=== PATIENT | male | born 2005 | race Caucasian/White ===

== ENCOUNTER 2024-11-20 14:49 | Emergency (ER) | payer BC, SELFPAY ==
[2024-11-20 14:58] VITALS: BP 158/106; PULSE 61; TEMP 36.6; O2SAT 99; BMI 27.3
--- NOTE | 2024-11-20 15:14 | CT_ITS ---
The [address] [address] Patient Name: HOLLY SUMMERS MRN: [facility]:[id number] date: 2005 Sex: M Assigned Patient Location: ED.MAIN Current Patient Location: ED.MAIN Accession/Order Number: [id number] Exam Date: 11/20/2024 16:01 Report Date: 11/20/2024 16:10 At the request of: DEMI ESTRADA NP Procedure: CT abdomen pelvis wo con CT Abdomen and Pelvis withoutcontrast TECHNIQUE: Axial imaging with 2-D reconstruction. . The CT exam was performed using one or more the following dose reduction techniques: Automated exposure control, adjustment of the MA and/or Kv according to patient size, or use of the iterative reconstruction technique. COMPARISON: None History: Left flank pain LIMITATIONS: None LOWER THORAX Unremarkable LIVER: Unremarkable GALLBLADDER: No gallbladder abnormality identified. BILE DUCTS: No dilatation SPLEEN: Unremarkable PANCREAS: Unremarkable ADRENAL GLANDS: Unremarkable KIDNEYS:Moderate left hydronephrosis and hydroureter. 2 mm obstructing left UVJ stone. Punctate right nephrolithiasis. Ill-defined hypodensities of both kidneys favoring cysts. AORTA: No abdominal aortic aneurysm identified. RETROPERITONEUM: No significant retroperitoneal abnormalities identified. MESENTERY:Unremarkable STOMACH:Unremarkable SMALL BOWEL: The small bowel loops are nondistended. APPENDIX: The appendix is normal. COLON: Unremarkable URINARY BLADDER: Urinary bladder is unremarkable. REPRODUCTIVE SYSTEM: Reproductive structures are unremarkable. PNEUMOPERITONEUM: None PERITONEAL FLUID:None BONY STRUCTURES: Unremarkable ABDOMINAL WALL: Unremarkable CT/CT abdomen pelvis wo con IMPRESSION: Obstructing 2 mm left UVJ stone with moderate hydronephrosis and hydroureter. Nonobstructing punctate right nephrolithiasis. Impression dictated by: Helio Andrade M.D. 11/20/2024 4:10 PM Dictation Location: [place] [address] Electronically authenticated by: [id number] Y Date: 11/20/2024 16:10
--- NOTE | 2024-11-20 15:15 | ED_ITS ---
HPI HPI - General Adult General Chief complaint: Abdominal Pain Stated complaint: LEFT SIDE FLANK PAIN Time Seen by Provider: 11/20/24 15:04 Source: patient Mode of arrival: walk-in History of Present Illness HPI narrative: The patient is a 19-year-old male who presents to the emergency department today for evaluation concerns for back and abdominal pain. He endorses this pain started approximately 90 minutes prior to arrival. He does endorse colicky pain mostly to the left flank that radiates to the left side of the abdomen. He reports associated symptoms of nausea and sensation of frequency with urination. He denies any fever/chills, vomiting. No hematuria. He denies any history of kidney stones. He otherwise denies any significant medical or surgical history. Related Data Previous Rx's ?Medication ?Instructions ?Recorded hydrocodone 5 mg-acetaminophen 325 1 tab PO Q6H PRN pa in 3 days #7 11/20/24 mg tablet tabs ondansetron 4 mg disintegrating 4 mg PO Q8H PRN nausea and 11/20/24 tablet vomiting 4 days #10 tabs tamsulosin 0.4 mg capsule 0.4 mg PO DAILY #10 caps Allergies Allergy/AdvReac Type Severity Reaction Status Date / Time No Known Drug Allergies Allergy Verified 11/20/24 15:01 Review of Systems ROS Status of ROS 10 or more systems reviewed and unremark able except as noted in history and below PFSH PFSH Social History Little interest or pleasure in doing things: not at all Feeling down, depressed, or hopeless: not at all Exam Narrative Exam Narrative: Constituational: Awake/ alert, appears to be in mild/moderate pain, well- hydrated HENMT: normocephalic, external ears normal, moist oral mucous membranes and oropharynx normal Eyes: EOMI and conjunctivae normal Neck: ROM intact Chest: inspection of chest normal Respiratory: Normal respiratory effort, clear to auscultation bilaterally Cardio: regular rate and regular rhythm GI: + Mild discomfort to palpation over LLQ, abdomen is otherwise soft to palpation and non-tender Back: + Mild L CVA discomfort, back is otherwise nontender MSK: ROM intact, +NVI Skin: no rashes or petechiae Neuro: no focal deficits Psych: mental status grossly normal Constitutional Vital Signs, click to edit/add: Last Vital Signs Temp 97.9 F 11/20/24 14:58 Pulse 61 11/20/24 14:58 Resp 20 11/20/24 14:58 BP 158/106 H 11/20/24 14:58 Pulse Ox 99 11/20/24 14:58 Course Vital Signs Vital signs: Vital Signs Temperature 97.9 F 11/20/24 14:58 Pulse Rate 61 11/20/24 14:58 Respiratory Rate 20 11/20/24 14:58 Blood Pressure 158/106 H 11/20/24 14:58 Pulse Oximetry 99 11/20/24 14:58 Temperature 97.9 F 11/20/24 14:58 Pulse Rate 61 11/20/24 14:58 Respiratory Rate 20 11/20/24 14:58 Blood Pressure 158/106 H 11/20/24 14:58 Pulse Oximetry 99 11/20/24 14:58 Medical Decision Making MDM Narrative Medical decision making narrative: Is a well-appearing 19-year-old male who presented to the emergency department today for evaluation of concerns for left flank and abdominal pain. Initial examination vital signs overall stable with exception to reported pain to this area. Patient received supportive measures initially of Toradol, Zofran, and IV fluids. On reevaluation he reported some improvement in pain. He subs and received morphine and on reevaluation he reported his pain to have subsided completely. Labs stable as below. UA is negative for UTI however noted for a couple occult blood presence. CT imaging of abdomen pelvis does show 2 mm left kidney stone UVJ. Discussed this with the patient including recommendations for supportive care. Will discharge home with [place] for severe pain, tamsulosin, and Zofran. Referral placed for urology for follow-up. Discussed signs and symptoms of any worsening condition and when to consider reevaluation by the emergency department. Patient verbalized an understanding of this and is agreeable to plan to be discharged home. Medical Records Medical records reviewed: Yes I reviewed the patient's medical records Lab Data Lab results reviewed: Yes I reviewed the patient's lab results Labs: Lab Results 11/20/24 11/20/24 Range/Units 15:10 15:15 WBC 9.2 (4.0-11.0) 10^3/uL RBC 5.13 (4.70-6.10) 10^6/uL Hgb 16.8 (14.0-18.0) g/dL Hct 45.8 (42.0-54.0) % MCV 89.3 (80.0-94.0) fL MCH 32.7 (25.9-34.0) pg MCHC 36.7 H (29.9-35.2) g/dL RDW 11.4 (11.0-15.0) % Plt Count 170 (150-450) 10^3/uL MPV 11.1 (9.5-13.5) fL Neut % (Auto) 73.2 (43.0-75.0) % Lymph % (Auto) 18.1 L (20.5-60.0) % [place] % (Auto) 5.8 (1.7-12.0) % Eos % (Auto) 2.2 (0.9-7.0) % Baso % (Auto) 0.6 (0.2-2.0) % Neut # (Auto) 6.8 H (1.4-6.5) 10^3/uL Lymph # (Auto) 1.7 (1.2-3.8) 10^3/uL [place] # (Auto) 0.5 (0.3-0.8) 10^3/uL Eos # (Auto) 0.2 (0.0-0.7) 10^3/uL Baso # (Auto) 0.1 (0.0-0.1) 10^3/uL Abs Immat Gran (auto) 0.01 (0.00-0.03) 10^3/uL Imm/Tot Granulo (auto) 0.1 (0.0-0.5) % Sodium 145 (136-145) mmol/L Potassium 4.0 (3.5-5.1) mmol/L Chloride 106 (98-107) mmol/L Carbon Dioxide 26.5 (21.0-32.0) mmol/L Anion Gap 16.5 BUN 18.0 (7.0-18.0) mg/dL Creatinine 0.81 (0.70-1.30) mg/dL Est GFR ( Amer) >60 (>=60 mL/min/1.73m^2) Est GFR (Non-Af Amer) >60 (>=60 mL/min/1.73m^2) BUN/Creatinine Ratio 22.2 Glucose 107 H (74-106) mg/dL Calcium 9.8 (8.5-10.1) mg/dL Total Bilirubin 1.0 (0.2-1.0) mg/dL AST 21 (15-37) U/L ALT 27 (16-63) U/L Alkaline Phosphatase 63 (46-116) U/L Total Protein 7.7 (6.4-8.2) g/dL Albumin 4.6 (3.4-5.0) g/dL Globulin 3.1 g/dL Albumin/Globulin Ratio 1.5 Urine Color Lt. yellow (YELLOW) Urine Clarity Sl cloudy (CLEAR) Urine pH 8.5 (5.0-9.0) Ur Specific [place] 1.010 (1.005-1.025) Urine Protein Trace (NEG/TRACE) mg/dL Urine Glucose (UA) Negative (NEGATIVE) mg/dL Urine Ketones Negative (NEGATIVE) mg/dL Urine Occult Blood Moderate A (NEGATIVE) Urine Nitrite Negative (NEGATIVE) Urine Bilirubin Negative (NEGATIVE) Urine Urobilinogen 1.0 (0.2-1.0) EU/dL Ur Leukocyte Esterase Negative (NEGATIVE) Urine RBC 10-20 A (0-2) #/HPF Urine WBC None seen (NONE SEEN) #/HPF Ur Squamous Epith Cells Rare (NONE/RARE) #/LPF Urine Crystals Seen A (None Seen) #/HPF Amorphous Sediment Moderate Urine Bacteria Trace A (NONE SEEN) #/HPF Urine Casts None seen (NONE SEEN) #/LPF Urine Mucus None seen (NONE SEEN) Ur Culture Indicated? No Imaging Data CT scan - abdomen: Radiologist's impression: ITS Impressions Abdomen/Pelvis CT 11/20/24 15:14 IMPRESSION: Obstructing 2 mm left UVJ stone with moderate hydronephrosis and hydroureter. Nonobstructing punctate right nephrolithiasis. Impression dictated by: Helio Andrade M.D. 11/20/2024 4:10 PM Dictation Location: [place] [address] Electronically authenticated by: [id number] Y Date: 11/20/2024 16:10 Discharge Plan Discharge Chief Complaint: Abdominal Pain Clinical Impression: Calculus of kidney Patient Disposition: Home, Self-Care Prescriptions / Home Meds: New ondansetron 4 mg tablet,disintegrating 4 mg PO Q8H PRN (Reason: nausea and vomiting) 4 Days Qty: 10 0RF hydrocodone-acetaminophen 5-325 mg tablet 1 tab PO Q6H PRN (Reason: pain) 3 Days Qty: 7 0RF tamsulosin 0.4 mg capsule 0.4 mg PO DAILY Qty: 10 0RF Print Language: Telugu Instructions: Kidney Stones (ED), How to Strain Your Urine (ED) Additional Instructions: May alternate Tylenol and ibuprofen as needed for any pain. May take [place] as needed for severe pain. May take Zofran as needed for any nausea or vomiting. Take Flomax as prescribed -> increased frequency of urination to help you pass the stone. Stay hydrated and drink plenty of fluids this includes water. Please follow-up with urology for reevaluation as discussed. Referrals: Physician,Non-Staff, [Primary Care Provider] - [address] MD [Physician, Urology] - 1 week
[2024-11-20] MEDS: 0.9 % SODIUM CHLORIDE 1,000 ML 1000 ML IV (15:23)
[2024-11-20] MEDS: KETOROLAC TROMETHAMINE 30 MG/ML VIAL IVP (15:24)
[2024-11-20 15:29] LABS: Hematocrit 45.8 % (42.0-54.0); Hemoglobin 16.8 g/dL (14.0-18.0); Immature Granulocytes Abs Auto 0.01 10^3/uL (0.00-0.03); Immature Granulocytes Pct Auto 0.1 % (0.0-0.5); Lymphocytes Absolute Auto 1.7 10^3/uL (1.2-3.8); Mean Corpuscular HGB Conc 36.7 g/dL (29.9-35.2); Mean Corpuscular Hemoglobin 32.7 pg (25.9-34.0); Mean Corpuscular Volume 89.3 fL (80.0-94.0); Platelet Count 170 10^3/uL (150-450); Red Blood Count 5.13 10^6/uL (4.70-6.10); White Blood Count 9.2 10^3/uL (4.0-11.0)
[2024-11-20 15:29] LABS: Glucose Urine UA NEGATIVE (NEGATIVE)
[2024-11-20 15:40] LABS: Alanine Aminotransferase 27 U/L (16-63); Albumin Globulin Ratio 1.5; Albumin Level 4.6 g/dL (3.4-5.0); Alkaline Phosphatase 63 U/L (46-116); Anion Gap 16.5; Aspartate Amino Transferase 21 U/L (15-37); Blood Urea Nitrogen 18.0 mg/dL (7.0-18.0); Calcium 9.8 mg/dL (8.5-10.1); Carbon Dioxide 26.5 mmol/L (21.0-32.0); Chloride 106 mmol/L (98-107); Estimated GFR (African America >60 (>=60 mL/min/1.73m^2); Estimated GFR (Non-African Ame >60 (>=60 mL/min/1.73m^2); Globulin 3.1 g/dL; Glucose 107 mg/dL (74-106); Potassium 4.0 mmol/L (3.5-5.1); Sodium 145 mmol/L (136-145); Total Protein 7.7 g/dL (6.4-8.2)
[2024-11-20 15:46] LABS: Crystals Seen? Seen #/HPF (None Seen)
[2024-11-20 15:47] LABS: Cast Seen? NONE SEEN #/LPF (NONE SEEN); Urine Culture Indicated NO
== END 2024-11-20 16:36 | disposition home or self-care (01) ==
PROVIDERS: Nurse Practitioner; Emergency Provider Emergency Medicine
DX: N13.2 Hydronephrosis with renal and ureteral calculous obstruction (principal)
CPT/HCPCS: 36415; 74176; 80053; 81001; 85025; 96374; 96375; 99284; J1885; J2405